=== PATIENT | male | born 1950 | race Caucasian/White ===

== ENCOUNTER 2021-09-16 05:37 | Day surgery (SDC) | payer OTHER, MEDICARE ==
[2021-09-10 14:33] LABS: BASOPHILS # (AUTO) 0.1 X10'3 (0-0.2); BASOPHILS % (AUTO) 0.8 % (0-1); EOSINOPHILS # (AUTO) 0.4 X10'3 (0-0.9); EOSINOPHILS % (AUTO) 5.2 % (0-6); LYMPHOCYTES # (AUTO) 1.8 X10'3 (1.1-4.8); LYMPHOCYTES % (AUTO) 21.3 % (21-51); MEAN CORPUSCULAR HEMOGLOBIN 30.3 PG (27.0-31.0); MEAN CORPUSCULAR HGB CONC 34.2 g/dL (33.0-36.5); MEAN CORPUSCULAR VOLUME 88.7 FL (78-98); MONOCYTES # (AUTO) 0.7 X10'3 (0-0.9); MONOCYTES % (AUTO) 8.7 % (2-12); NEUTROPHILS # (AUTO) 5.3 X10'3 (1.8-7.7); PRE OP HEMATOCRIT 47.3 % (42.0-52.0); PRE OP HEMOGLOBIN 16.2 g/dL (14.0-17.9); PRE OP PLATELET COUNT 211 X10'3 (140-440); RED BLOOD COUNT 5.34 X10'6 (4.70-6.10); RED CELL DISTRIBUTION WIDTH 12.8 % (11.5-14.5)
[2021-09-10 14:42] LABS: ALBUMIN 3.1 G/DL (3.4-5.0); ALBUMIN/GLOBULIN RATIO 0.8 (1.1-1.5); ALKALINE PHOSPHATASE 67 IU/L (46-116); BLOOD UREA NITROGEN 16 MG/DL (7-18); BUN/CREATININE RATIO 15.7 (5.4-32.0); CALCIUM 8.9 MG/DL (8.5-10.1); CHLORIDE 107 MMOL/L (99-107); CREATININE 1.02 MG/DL (0.60-1.10); PRE OP ALT 35 U/L (30-65); PRE OP ANION GAP 4 (8-16); PRE OP AST 23 U/L (10-37); PRE OP BILIRUB, TOTAL 0.4 MG/DL (0.0-1.0); PRE OP GLUCOSE 116 MG/DL (70-104); PRE OP POTASSIUM 3.9 MMOL/L (3.4-5.1); PRE OP SODIUM 140 MMOL/L (135-145); TOTAL CARBON DIOXIDE 28.6 MMOL/L (24-32); eGFR 72 ML/MIN
[~2021-09-16] VITALS: Ht 180.3 cm; Wt 116.4 kg
[2021-09-16] VITALS (10 sets, daily range): BP systolic 123–156; BP diastolic 80–110
[~2021-09-16 05:37] MED LIST: ATOR10TA70 PO; CHOL400T57 PO; MULT-227 PO; SILD100T PO; ceFAZolin inj. 2,000 MG in dextrose 5%-water 100 ML IV ONE; famotidine 20mg tablet PO ONE; ringers solution, lacted 1,000 ML IV SCH
[2021-09-16] MEDS ORDERED: BUPIVAcaine/PF 2.5mg/ml (0.25%) 10ml vial ONE ×2 (06:40→06:58)
[2021-09-16] MEDS ORDERED: LIDOcaine 1% 30ml preserv. free vial ONE (06:40)
[2021-09-16] MEDS ORDERED: BUPIVACAINE liposomal/PF 13.3 MG/ML vial IM ONE (06:58)
[2021-09-16] MEDS ORDERED: midazolam 1 mg/ML 2ml injection ONE ×2 (07:06→07:39)
[2021-09-16] MEDS ORDERED: fentaNYL/PF 50MCG/1 ML 2ML syringe ONE ×2 (07:06→07:38)
[2021-09-16] MEDS ORDERED: ondansetron/PF 4mg/2ml inj ONE (07:07)
[2021-09-16] MEDS ORDERED: LIDOcaine 2% (20mg/ml) 5ml vial ONE (07:07)
[2021-09-16] MEDS ORDERED: rocuronium 10mg/ml inj IV ONE (07:07)
[2021-09-16] MEDS ORDERED: dexamethasone sod phosphate 4mg/ml inj. ONE (07:07)
[2021-09-16] MEDS ORDERED: neostigmine methylsulfate 1 MG/ML 10ml vial ONE (07:07)
[2021-09-16] MEDS ORDERED: propofol inj 20 ML IV ONE (07:07)
[2021-09-16] MEDS ORDERED: glycopyrrolate 0.2mg/ml inj ONE (07:07)
[2021-09-16] MEDS ORDERED: labetalol 20mg/4ml (5mg/ml) syringe IV PRN (07:15)
[2021-09-16] MEDS ORDERED: morphine 4 MG/ML inj SYRINge IV PRN (07:15)
[2021-09-16] MEDS ORDERED: morphine 2 MG/ML inj. syringe IV PRN (07:15)
[2021-09-16] MEDS ORDERED: hydrALAZINE 20mg/ml inj. IV PRN (07:15)
[2021-09-16] MEDS ORDERED: ringers solution, lacted 1,000 ML IV SCH (07:15)
[2021-09-16] MEDS ORDERED: ondansetron/PF 4mg/2ml inj IV PRN (07:15)
[2021-09-16] MEDS ORDERED: fentaNYL/PF 50MCG/1 ML 2ML syringe IV PRN ×2 (07:15)
[2021-09-16] MEDS ORDERED: sevoflurane 250ml liquid IH ONE (07:25)
[2021-09-16] MEDS ORDERED: labetalol 20mg/4ml (5mg/ml) syringe IV ONE (07:39)
--- NOTE | 2021-09-16 08:44 | NUR ---
Received from OR via [facility], accompanied by Anesthesiologist DR BURNHAM and report given by Anesthesiologist AND RETAIL MERCHANDISING COORDINATOR. PT DROWSY, DENIES PAIN. ABDOMEN W/3 LAP SITES W/BANDAIDS ON LEFT, SMALL GAUZE DRSG ON RIGHT CDI. Addendum: 09/16/21 at 0855 by Wanda Xiong RN Amended: Links added.
[2021-09-16] MEDS ORDERED: oxyCODONE/APAP 5-325mg tablet PO PRN (08:45)
--- NOTE | 2021-09-16 10:24 | NUR ---
PT UP AND ABLE TO AMBULATE SAFELY, PT DENIES PAIN, STATES IS MINIMAL. D/C INSTRUCTIONS GIVEN AND GONE OVER W/PT WHO VERBALIZED UNDERSTANDING. PT D/CD TO HOME VIA W/C TO PRIVATE VEHICLE W/O INCIDENT. Addendum: 09/16/21 at 1049 by Wanda Xiong RN Amended: Links added.
== END 2021-09-16 10:24 | disposition home or self-care (01) ==
LOC: PAS 05:37
PROVIDERS: ATTEND Surgery
DX: K42.0 Umbilical hernia with obstruction, without gangrene (principal); E78.5 Hyperlipidemia, unspecified; Z79.899 Other long term (current) drug therapy; Z98.890 Other specified postprocedural states
CPT/HCPCS: 36415; 49653; 64488; 80053; 82948; 85025; 93005; C1781; C9290; J0690; J1100; J2250; J2405; J2704; J2710; J3010; J3490; J7030; J7060; J7120; S2900; Z7506; Z7508; Z7512; A4215; A4618